=== PATIENT | male | born 1995 | race Hispanic/Latino ===

== ENCOUNTER 2018-09-13 00:46 | Emergency (ER) | payer OTHER ==
[2018-09-13] MEDS ORDERED: SODIUM CHLORIDE 0.9% 1000ML 1,000 ML IV ONE (01:31)
[2018-09-13] MEDS ORDERED: ACETAMINOPHEN EXTRA STRENGTH 500 MG TABLET ONE (01:31)
[2018-09-13 01:44] LABS: BASOPHILS % (AUTO) 0.6 % (0.0-5.0); HEMATOCRIT 49.5 % (42-54); LYMPHOCYTES % (AUTO) 7.9 % (21.0-51.0); MEAN CORPUSCULAR HEMOGLOBIN 30.8 pg (27.0-33.0); MEAN CORPUSCULAR HGB CONC 34.2 g/dL (32.0-36.0); MEAN CORPUSCULAR VOLUME 89.9 fL (79-99); MONOCYTES % (AUTO) 10.3 % (3.0-13.0); NEUTROPHILS % (AUTO) 75.2 % (40.0-77.0); PLATELET COUNT (AUTO) 215 K/uL (130-400); WHITE BLOOD COUNT (AUTO) 7.5 K/uL (4.8-10.8)
[2018-09-13 01:50] LABS: APPEARANCE,URINE Clear (CLEAR); BILIRUBIN,URINE Negative (NEGATIVE); COLOR,URINE Yellow (YELLOW); GLUCOSE, URINE (UA) Negative (NEGATIVE); KETONES,URINE Negative (NEGATIVE); LEUKOCYTE ESTERASE ,URINE Negative (NEGATIVE); NITRATE,URINE Negative (NEGATIVE); OCCULT BLOOD,URINE Negative (NEGATIVE); PH,URINE 7.5 (5.0-8.0); PROTEIN,URINE Negative (NEGATIVE)
[2018-09-13 02:01] LABS: CARBON DIOXIDE 28 mmol/L (21-32); CHLORIDE 100 mmol/L (101-111); CREATININE 1.3 mg/dL (0.5-1.5); GLOMERULAR FILTR. RATE CALC 71 mL/min (>60); GLUCOSE,RANDOM 96 mg/dL (70-105); POTASSIUM 3.3 mmol/L (3.5-5.1); SODIUM SERUM 138 mmol/L (136-145); UREA NITROGEN, BLOOD 8 mg/dL (7-18)
[2018-09-13 02:02] LABS: INR 1.06 (0.85-1.15); PARTIAL THROMBOPLASTIN TIME 32.7 SEC (26.3-35.5); PROTHROMBIN TIME 11.1 SEC (9.6-11.6)
[2018-09-13 02:17] LABS: ALANINE AMINOTRANSFERASE 27 U/L (12-78); ALBUMIN 4.2 g/dL (3.5-5.0); ASPARTATE AMINOTRANSFERASE 23 U/L (10-37); BILIRUBIN,TOTAL 0.9 mg/dL (0.2-1.0); CREATINE KINASE, TOTAL 47 U/L (21-232); MYOGLOBIN 43 ng/mL (10-92); RAPID GROUP A STREP NEGATIVE (NEGATIVE); TROPONIN I < 0.04 ng/mL (0.00-0.06)
[2018-09-13] MEDS ORDERED: POTASSIUM CHLORIDE 20 MEQ ERTAB PO ONE (02:40)
== END 2018-09-13 03:42 ==
LOC: EDH 00:46
DX: J10.1 Influenza due to other identified influenza virus with other respiratory manifestations (principal); E87.6 Hypokalemia
CPT/HCPCS: 36415; 71045; 80053; 81003; 82550; 83605; 83874; 84484; 85025; 85610; 85730; 87040 ×2; 87088; 87804 ×2; 87880; 93005; 96374; 99285; J7030